=== PATIENT | female | born 1995 | race Caucasian/White ===

== ENCOUNTER 2017-05-22 18:07 | Emergency (ER) | payer BC ==
[2017-05-22] MEDS ORDERED: Ketorolac 60 MG/2 ML SDV IM STA (18:16)
[2017-05-22] MEDS ORDERED: Acetaminophen/Codeine 300-30 MG Tab PO STA (18:16)
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
== END 2017-05-22 19:50 | disposition home or self-care (01) ==
LOC: FB.ED 18:07
DX: T23.202A Burn of second degree of left hand, unspecified site, initial encounter (principal); T23.152A Burn of first degree of left palm, initial encounter; X10.0XXA Contact with hot drinks, initial encounter
CPT/HCPCS: 96372; 99283; A9270; J1885